=== PATIENT | male | born 1955 | race Caucasian/White ===

== ENCOUNTER → 2016-08-20 | Outpatient (CLI) | payer OTHER ==
--- NOTE | 2016-08-21 15:29 | CR ---
EXAM DATE: 08/20/16 PATIENT'S AGE: 61 Patient: MADHAVI WATTS Facility: [place], [place] Site . Site : 1955 Study: XRay Shoulder Right [id number]/27/2017 9:28:09 AM Ordering Physician: Miranda Samuel Final Report: Indication: Pain. Technique: Three views. Impression: Maintained acromial humeral distance. Anatomic glenohumeral alignment. No degenerative or inflammatory change of significance appreciated at the glenohumeral or acromioclavicular joint. No fracture or bone lesion in the field of view. Dictated by Reed Amin MD @ Aug 20 2016 9:34PM (Electronic Signature) Report Signed by Proxy. DAMIR
== END ==
LOC: MW.CHORTHO 07:48
PROVIDERS: ATTEND Orthopaedic Surgery
DX: S46.919A Strain of unspecified muscle, fascia and tendon at shoulder and upper arm level, unspecified arm, initial encounter (principal)
CPT/HCPCS: 73030-26-RT; 73030-RT

== ENCOUNTER 2017-08-20 09:36 | Day surgery (SDC) | payer OTHER ==
[~2017-08-20 09:36] MED LIST: Acetaminophen/HYDROcodone 325-5 MG Tab PO PRN; Bupivacaine 0.25%/EPINEPHrine 1:200,000 10 ML SDV INJECT ONE; Bupivacaine 25%/EPINEPHrine/PF 30 ML ONE; Lactated Ringers 1,000 ML IV SCH; ceFAZolin 2 GM in Premix Bag 1 BAG IV ONE
[2017-08-20] MEDS ORDERED: Ketorolac 30 MG/ML SDV ONE (11:27)
[2017-08-20] MEDS ORDERED: fentaNYL 100 MCG/2 ML SDV ONE (11:27)
[2017-08-20] MEDS ORDERED: Propofol 200 MG/20 ML SDV ONE (11:27)
[2017-08-20] MEDS ORDERED: Ondansetron 4 MG/2 ML SDV ONE (11:27)
[2017-08-20] MEDS ORDERED: Glycopyrrolate 0.2 MG/ML SDV ONE (11:27)
[2017-08-20] MEDS ORDERED: Lidocaine 2% 5 ML SDV ONE (11:27)
[2017-08-20] MEDS ORDERED: Midazolam 1 MG/ML 2 ML SDV ONE (11:29)
[2017-08-20] MEDS ORDERED: ceFAZolin 1 GM Vial ONE (11:38)
--- NOTE | 2017-08-20 11:46 | PCM.PREANE ---
Preanesthetic Assessment - Anesthesia/Transfusion/Family Hx Anesthesia History: Prior Anesthesia Without Reaction Family History of Anesthesia Reaction: No Transfusion History: No Prior Transfusion(s) - Review of Systems General: No Symptoms Pulmonary: No Symptoms Cardiovascular: No Symptoms Gastrointestinal: No Symptoms Neurological: No Symptoms Other: Reports: None - Physical Assessment NPO Status Date: 08/19/17 O2 Sat by Pulse Oximetry: 96 Respiratory Rate: 16 Vital Signs: Last Vital Signs Temp 36.4 C 08/20/17 11:02 Pulse 61 08/20/17 11:02 Resp 16 08/20/17 11:02 BP 150/82 H 08/20/17 11:02 Pulse Ox 96 08/20/17 11:02 Height: 1.65 m Weight: 130.181 kg ASA Class: 2 Mental Status: Alert & Oriented x3 Airway Class: Mallampati = 2 Dentition: Reports: Normal Dentition ROM/Head Extension: Full Lungs: Clear to Auscultation, Normal Respiratory Effort Cardiovascular: Regular Rate, Regular Rhythm - Allergies Allergies/Adverse Reactions: Allergies Allergy/AdvReac Type Severity Reaction Status Date / Time No Known Allergies Allergy Verified 08/17/17 14:45 - Anesthesia Plan Pre-Op Medication Ordered: None - Acknowledgements Anesthesia Type Planned: General Anesthesia Pt an Appropriate Candidate for the Planned Anesthesia: Yes Alternatives and Risks of Anesthesia Discussed w Pt/Guardian: Yes Pt/Guardian Understands and Agrees with Anesthesia Plan: Yes Additional Comments: PMH: htn, morbid obesity PreAnesthesia Questionnaire HEENT History: Reports: Other (See Below) Other HEENT History: wears glasses, has hearing aids but does not wear them Cardiovascular History: Reports: High Cholesterol, Hypertension Respiratory History: Reports: Sleep Apnea Other Respiratory History: uses CPAP Gastrointestinal History: Reports: None Genitourinary History: Reports: Renal Calculus Musculoskeletal History: Reports: Fracture Other Musculoskeletal History: hx fx finger Endocrine/Metabolic History: Reports: Obesity/BMI 30+ - Past Surgical History Head Surgeries/Procedures: Reports: None GI Surgical History: Reports: Hernia, Abdominal Male Surgical History: Reports: Vasectomy - SUBSTANCE USE Smoking Status *Q: Former Smoker Tobacco Use Within Last Twelve Months: No Recreational Drug Use History: No - HOME MEDS Home Medications: Home Meds Fish Oil/[place]-3 Fatty Acids [Fish Oil 1,000 MG] 1 tab PO DAILY 08/17/17 [ History] Furosemide 20 mg PO DAILY 08/17/17 [History] Multivitamin [Multivitamins] 1 tab PO DAILY 08/17/17 [History] Valsartan 160 mg PO DAILY 08/17/17 [History] - CURRENT (IN HOUSE) MEDS Current Meds: Current Medications Hydrocodone Bitart/Acetaminophen ([place] 325-5 Mg) 1 tab PO Q4H PRN PRN Reason: Pain Lactated Ringer's (Ringers, Lactated) 1,000 mls @ 125 mls/hr IV ASDIRECTED ERIC Last Admin: 08/20/17 11:07 Dose: 125 mls/hr Discontinued Medications Bupivacaine HCl/Epinephrine Bitart (Marcaine 0.25%/Epinephrine 1:200,000) 10 ml INJECT ONETIME ONE Stop: 08/20/17 08:01 Fentanyl (Sublimaze) Confirm Administered Dose 100 mcg .ROUTE .STK-MED ONE Stop: 08/20/17 11:28 Glycopyrrolate (Robinul) Confirm Administered Dose 0.2 mg .ROUTE .STK-MED ONE Stop: 08/20/17 11:28 Cefazolin Sodium/Dextrose 2 gm (/ Premix) 50 mls @ 100 mls/hr IV ONETIME ONE Stop: 08/20/17 08:29 Bupivacaine HCl/Epinephrine Bitart (Sensorc Mpf 0.25%-Epi 1:631099) Confirm Administered Dose 30 mls @ as directed .ROUTE .STK-MED ONE Stop: 08/20/17 07:41 Ketorolac Tromethamine (Toradol) Confirm Administered Dose 30 mg .ROUTE .STK- MED ONE Stop: 08/20/17 11:28 Lidocaine (Xylocaine-Mpf 2%) Confirm Administered Dose 5 ml .ROUTE .STK-MED ONE Stop: 08/20/17 11:28 Midazolam HCl (Versed 1 Mg/Ml) Confirm Administered Dose 2 mg .ROUTE .STK-MED ONE Stop: 08/20/17 11:30 Ondansetron HCl (Zofran) Confirm Administered Dose 4 mg .ROUTE .STK-MED ONE Stop: 08/20/17 11:28 Propofol (Diprivan 20 Ml) Confirm Administered Dose 200 mg .ROUTE .STK-MED ONE Stop: 08/20/17 11:28
--- NOTE | 2017-08-20 12:40 | PCM.OPNOTE ---
- General Post-Op/Procedure Note Date of Surgery/Procedure: 08/20/17 Operative Procedure(s): excision of rhinophyma Pre Op Diagnosis: rhinophyma Post-Op Diagnosis: Same Anesthesia Technique: General LMA, Local Primary Surgeon: Emely Erickson Complications: None Condition: Good
[2017-08-20] MEDS ORDERED: Phenylephrine/Normal Saline 100 MCG/ML 10 ML Syringe ONE (13:01)
[2017-08-20] MEDS ORDERED: Ondansetron 4 MG/2 ML SDV IVPUSH PRN (13:59)
--- NOTE | 2017-08-20 14:26 | PCM.POSTAN ---
POST ANESTHESIA ASSESSMENT - MENTAL STATUS Mental Status: Alert, Oriented - RESPIRATORY Respiratory Status: Respiratory Rate WNL, Airway Patent, O2 Saturation Stable - CARDIOVASCULAR CV Status: Pulse Rate WNL, Blood Pressure Stable - GASTROINTESTINAL GI Status: No Symptoms - POST OP HYDRATION Hydration Status: Adequate & Stable
--- NOTE | 2017-08-20 14:27 | PCM48HPAN ---
Post Anesthesia Note - EVALUATION WITHIN 48HRS OF ANESTHETIC Vital Signs in Normal Range: Yes Patient Participated in Evaluation: Yes Respiratory Function Stable: Yes Airway Patent: Yes Cardiovascular Function Stable: Yes Hydration Status Stable: Yes Pain Control Satisfactory: Yes Nausea and Vomiting Control Satisfactory: Yes Mental Status Recovered: Yes Resp Rate: 13
--- NOTE | 2017-08-25 00:56 | OR ---
SURGEON: EMELY ERICKSON MD DATE OF PROCEDURE: 08/20/2017 PREOPERATIVE DIAGNOSIS: Significant rhinophyma causing nasal obstruction. POSTOPERATIVE DIAGNOSIS: Significant rhinophyma causing nasal obstruction. PROCEDURE PERFORMED: Tangential excision of rhinophyma and cautery for hemostasis. PRIMARY SURGEON: Emely Erickson MD ANESTHESIA: General LMA with local. INDICATIONS: Mr. Handley is a 62-year-old gentleman with significant rhinophyma. Risks and benefits of excision and cautery were discussed with him, and he is in agreement to proceed. He knows that this will heal by secondary intention and will take sometime for final outcome. Risks were including, but not limited to, bleeding, infection, damage to underlying or overlying structures, possible need for future interventions, and possible scarring. PROCEDURE IN DETAIL: After informed consent was obtained and placed on the chart, the patient was brought to the operating theater and laid in supine position. After adequate general anesthesia was obtained, the area was prepped and draped, and a time-out was completed to confirm side and site. Attention was then paid to tangential excision of the rhinophyma using a #15 blade and a #10 blade. Once this was completed, meticulous hemostasis was obtained in a segmental fashion for the entire nasal dorsum and ala. The excision was then tapered to allow a smooth transition between normal skin and the previous rhinophyma excision. Once appropriate contour was appreciated, the area was dressed with bacitracin and a nonstick dressing. The patient tolerated this well. All counts and needles were correct at the end of the case. FOLLOWUP INSTRUCTIONS: The patient was discharged home in stable condition and will follow up with us in approximately 1 week or sooner if any problems, questions, or concerns. HEGGTHE / STEPHANIEL /[id number]
== END 2017-08-20 15:15 | disposition home or self-care (01) ==
LOC: MW.SDS 09:36
PROVIDERS: ATTEND Plastic Surgery
DX: L71.1 Rhinophyma (principal); I10 Essential (primary) hypertension; E78.5 Hyperlipidemia, unspecified; Z79.899 Other long term (current) drug therapy
CPT/HCPCS: 00160; J0690; J1885; J2250; J2405; J2704; J3010; J7120

== ENCOUNTER 2017-12-19 10:07 | Emergency (ER) | payer OTHER ==
--- NOTE | 2017-12-19 10:34 | EDM.PDOC ---
ED HPI GENERAL MEDICAL PROBLEM - General Chief Complaint: Abdominal Pain Stated Complaint: ABDOMINAL PAIN Time Seen by Provider: 12/19/17 10:31 Source of Information: Reports: Patient History Limitations: Reports: No Limitations - History of Present Illness INITIAL COMMENTS - FREE TEXT/NARRATIVE: HISTORY AND PHYSICAL: History of present illness: Patient is a 62-year-old male here with complaint of kidney stones. He states that about 8:00 this morning he felt the pain on the left side of his back, the pain has since subsided. He reports he has a history of kidney stones and this is what generally starts. He denies any hematuria or dysuria. He states he felt a little nauseous this morning with the pain but denies any vomiting or diarrhea. He denies any fevers or chills. He states he is not having any abdominal pain. Patient states he is not in any pain at this time. Patient has a follow up with his primary care provider tomorrow. Review of systems: As per history of present illness and below otherwise all systems reviewed and negative. Past medical history: As per history of present illness and as reviewed below otherwise noncontributory. Surgical history: As per history of present illness and as reviewed below otherwise noncontributory. Social history: No reported history of drug or alcohol abuse. Family history: As per history of present illness and as reviewed below otherwise noncontributory. Physical exam: General: Patient sitting comfortably in no acute distress and nontoxic appearing HEENT: Atraumatic, normocephalic, pupils reactive, negative for conjunctival pallor or scleral icterus, mucous membranes moist, throat clear, neck supple, nontender, trachea midline. No meningeal signs. Lungs: Clear to auscultation, breath sounds equal bilaterally, chest nontender. Heart: S1S2, regular, negative for clicks, rubs, or overt murmur. Abdomen: Obese, Soft, nondistended, nontender. Negative for masses or hepatosplenomegaly. Negative for costovertebral tenderness. Pelvis: Stable nontender. Genitourinary: Deferred. Rectal: Deferred. Extremities: Atraumatic, negative for cords or calf pain. Neurovascular unremarkable. Neuro: Awake, alert, oriented. Cranial nerves II through XII unremarkable. Cerebellum unremarkable. Motor and sensory unremarkable throughout. Exam nonfocal. Notes: Patient declines need for pain medication. Diagnostics: UA, CBC, CMP CT Abdomen/pelvis Therapeutics: None Prescriptions: None Impression: Nephrolithiasis Plan: 1. Follow up with urology 2. Return to ED as needed as discussed Definitive disposition and diagnosis as appropriate pending reevaluation and review of above. left flank Pain Score (Numeric/FACES): 2 - Related Data Allergies Allergy/AdvReac Type Severity Reaction Status Date / Time No Known Allergies Allergy Verified 12/19/17 10:24 Home Meds: Home Meds Fish Oil/[place]-3 Fatty Acids [Fish Oil 1,000 MG] 1 tab PO DAILY 08/17/17 [ History] Furosemide 20 mg PO DAILY 08/17/17 [History] Multivitamin [Multivitamins] 1 tab PO DAILY 08/17/17 [History] Valsartan 160 mg PO DAILY 08/17/17 [History] Past Medical History HEENT History: Reports: Other (See Below) Other HEENT History: wears glasses, has hearing aids but does not wear them Cardiovascular History: Reports: High Cholesterol, Hypertension Respiratory History: Reports: Sleep Apnea Other Respiratory History: uses CPAP Gastrointestinal History: Reports: None Genitourinary History: Reports: Renal Calculus Musculoskeletal History: Reports: Fracture Other Musculoskeletal History: hx fx finger Psychiatric History: Reports: None Endocrine/Metabolic History: Reports: Obesity/BMI 30+ - Past Surgical History Head Surgeries/Procedures: Reports: None GI Surgical History: Reports: Hernia, Abdominal Male Surgical History: Reports: Vasectomy Social & Family History - Family History Family Medical History: Noncontributory - Tobacco Use Smoking Status *Q: Never Smoker - Recreational Drug Use Recreational Drug Use: No ED ROS GENERAL - Review of Systems Review Of Systems: ROS reveals no pertinent complaints other than HPI. ED EXAM, GI/ABD - Physical Exam Exam: See Below (See dictation) Course - Vital Signs Last Recorded V/S: Last Vital Signs Temp 36.6 C 12/19/17 13:29 Pulse 55 L 12/19/17 13:29 Resp 18 12/19/17 13:29 BP 154/84 H 12/19/17 13:29 Pulse Ox 96 12/19/17 13:29 - Orders/Labs/Meds Orders: Active Orders 24 hr Category Date Time Status Abdomen Pelvis wo Cont [CT] Stat Exams 12/19/17 11:26 Taken UA W/MICROSCOPIC [URIN] Stat Lab 12/19/17 10:50 Ordered Labs: Laboratory Tests 12/19/17 12/19/17 12/19/17 Range/Units 10:50 13:23 13:23 WBC 8.79 (4.0-11.0) K/uL RBC 5.31 (4.50-5.90) M/uL Hgb 14.7 (13.0-17.0) g/dL Hct 43.6 (38.0-50.0) % MCV 82.1 (80.0-98.0) fL MCH 27.7 (27.0-32.0) pg MCHC 33.7 (31.0-37.0) g/dL RDW Std Deviation 40.2 (28.0-62.0) fl RDW Coeff of Jose Enrique 13 (11.0-15.0) % Plt Count 174 (150-400) K/uL MPV 9.40 (7.40-12.00) fL Neut % (Auto) 80.1 H (48.0-80.0) % Lymph % (Auto) 12.1 L (16.0-40.0) % Moody % (Auto) 6.9 (0.0-15.0) % Eos % (Auto) 0.7 (0.0-7.0) % Baso % (Auto) 0.2 (0.0-1.5) % Neut # (Auto) 7.0 H (1.4-5.7) K/uL Lymph # (Auto) 1.1 (0.6-2.4) K/uL Moody # (Auto) 0.6 (0.0-0.8) K/uL Eos # (Auto) 0.1 (0.0-0.7) K/uL Baso # (Auto) 0.0 (0.0-0.1) K/uL Nucleated RBC % 0.0 /100WBC Nucleated RBCs # 0 K/uL Sodium 142 (136-148) mmol/L Potassium 4.2 (3.5-5.1) mmol/L Chloride 107 (98-107) mmol/L Carbon Dioxide 29.7 (21.0-32.0) mmol/L BUN 12 (7.0-18.0) mg/dL Creatinine 1.0 (0.8-1.3) mg/dL Est Cr Clr Drug Dosing 65.77 mL/min Estimated GFR (MDRD) > 60.0 ml/min Glucose 117 H (74-106) mg/dL Calcium 8.3 L (8.5-10.1) mg/dL Total Bilirubin 0.3 (0.2-1.0) mg/dL AST 19 (15-37) IU/L ALT 48 (14-63) IU/L Alkaline Phosphatase 59 (46-116) U/L Total Protein 6.8 (6.4-8.2) g/dL Albumin 3.6 (3.4-5.0) g/dL Globulin 3.2 (2.0-3.5) g/dL Albumin/Globulin Ratio 1.1 L (1.3-2.8) Urine Color YELLOW Urine Appearance CLEAR Urine pH 6.0 (5.0-8.0) Ur Specific [place] 1.015 (1.001-1.035) Urine Protein NEGATIVE (NEGATIVE) mg/dL Urine Glucose (UA) NEGATIVE (NEGATIVE) mg/dL Urine Ketones NEGATIVE (NEGATIVE) mg/dL Urine Occult Blood LARGE H (NEGATIVE) Urine Nitrite NEGATIVE (NEGATIVE) Urine Bilirubin NEGATIVE (NEGATIVE) Urine Urobilinogen 0.2 (<2.0) EU/dL Ur Leukocyte Esterase NEGATIVE (NEGATIVE) Urine RBC 20-25 (0-2/HPF) Urine WBC 0-1 (0-5/HPF) Ur Epithelial Cells RARE (NONE-FEW) Urine Bacteria RARE (NEGATIVE) Departure - Departure Time of Disposition: 14:16 Disposition: Home, Self-Care 01 Condition: Good Clinical Impression: Nephrolithiasis - Discharge Information Referrals: Salvador Bryant MD [Primary Care Provider] - Forms: ED Department Discharge Additional Instructions: The following information is given to patients seen in the emergency department who are being discharged to home. This information is to outline your options for follow-up care. We provide all patients seen in our emergency department with a follow-up referral. The need for follow-up, as well as the timing and circumstances, are variable depending upon the specifics of your emergency department visit. If you don't have a primary care physician on staff, we will provide you with a referral. We always advise you to contact your personal physician following an emergency department visit to inform them of the circumstance of the visit and for follow-up with them and/or the need for any referrals to a consulting specialist. The emergency department will also refer you to a specialist when appropriate. This referral assures that you have the opportunity for follow-up care with a specialist. All of these measure are taken in an effort to provide you with optimal care, which includes your follow-up. Under all circumstances we always encourage you to contact your private physician who remains a resource for coordinating your care. When calling for follow-up care, please make the office aware that this follow-up is from your recent emergency room visit. If for any reason you are refused follow-up, please contact the [facility] Emergency Department at and asked to speak to the emergency department charge nurse. [facility] Specialty Care - Urology [address] [place] [id number] 1. Follow up with urology 2. Return to ED as needed as discussed - My Orders Last 24 Hours: My Active Orders 12/19/17 10:50 UA W/MICROSCOPIC [URIN] Stat 12/19/17 11:26 Abdomen Pelvis wo Cont [CT] Stat - Assessment/Plan Last 24 Hours: My Active Orders 12/19/17 10:50 UA W/MICROSCOPIC [URIN] Stat 12/19/17 11:26 Abdomen Pelvis wo Cont [CT] Stat
[2017-12-19 14:12] LABS: CHLORIDE,CL 107 mmol/L (98-107); SODIUM,NA 142 mmol/L (136-148)
--- NOTE | 2017-12-20 14:46 | CT ---
EXAM DATE: 12/19/17 PATIENT'S AGE: 62 Patient: MADHAVI WATTS Facility: [place], [place] Site . Site : 1955 Study: CT Abdomen/Pelvis w/o cont. [id number]/26/2018 12:27:52 PM Ordering Physician: Doctor Bermeo Final Report: INDICATION: Left flank pain. History of nephrolithiasis. TECHNIQUE: CT abdomen and pelvis without contrast. COMPARISON: None FINDINGS: Lower chest: Unremarkable. Liver: Minimal low-attenuation steatosis. Some sparing around the gallbladder fossa. Spleen: Unremarkable. Pancreas: Unremarkable. Gallbladder and bile ducts: Unremarkable. Kidneys: Mild hydronephrosis and hydroureter on the left extends to a mid ureteral calculus measuring 2.7 mm just above the level of the sacral promontory. Distal ureter decompressed. Mild periureteral stranding around the level of the stone. Mild perinephric stranding on the left. Roughly 5.4 x 3.7 cm parapelvic cyst mid to lower pole left kidney. No other nephrolithiasis. Slightly expanded hypoattenuating left kidney versus the right. No stones on the right. Tiny benign a 1 cm exophytic cyst ventral lower pole. Adrenal glands: Small roughly 2 cm low attenuation nodule right adrenal with Hounsfield units averaging less than 10 commensurate with adenoma. GI tract: Normal caliber small bowel. Diverticula of the left colon without inflammation. Appendix is normal. Vascular structures: Mild atherosclerotic calcification. No aneurysmal dilatation. Retroaortic left renal vein noted. Lymph nodes: Unremarkable. Miscellaneous: Unremarkable. No free air or significant free fluid. Pelvic Organs: Unremarkable. Urinary bladder decompressed. No filling defect. Bones: Unremarkable for age. IMPRESSION: Nearly 3 mm partially obstructing mid left ureteral calculus. Just above the sacral promontory level. Mild obstructive uropathy. Parapelvic cyst mid to lower pole. Tiny benign exophytic. Low-grade hepatic steatosis. Left colon diverticulosis. Roughly 2 cm benign right adrenal adenoma. Please note that all CT scans at this facility use dose modulation, iterative reconstruction, and/or weight-based dosing when appropriate to reduce radiation dose to as low as reasonably achievable. Dictated by Reed Amin MD @ Dec 19 2017 1:05PM (Electronic Signature) Report Signed by Proxy. DAMIR
== END 2017-12-19 14:24 | disposition home or self-care (01) ==
LOC: MW.ED 10:07
DX: N13.9 Obstructive and reflux uropathy, unspecified (principal); N20.2 Calculus of kidney with calculus of ureter; I10 Essential (primary) hypertension; E66.9 Obesity, unspecified
CPT/HCPCS: 36415; 74176; 74176-26; 80053; 81001; 85025; 99282-25

== ENCOUNTER 2018-09-26 07:46 | Day surgery (SDC) | payer OTHER ==
[~2018-09-26 07:46] MED LIST changes: -Acetaminophen/HYDROcodone 325-5 MG Tab PO PRN; -Bupivacaine 0.25%/EPINEPHrine 1:200,000 10 ML SDV INJECT ONE; -Bupivacaine 25%/EPINEPHrine/PF 30 ML ONE; +Midazolam 1 MG/ML 2 ML SDV ONE; +Propofol 200 MG/20 ML SDV ONE; -ceFAZolin 2 GM in Premix Bag 1 BAG IV ONE; +fentaNYL 100 MCG/2 ML SDV ONE
--- NOTE | 2018-09-26 08:59 | PCM.PREANE ---
Preanesthetic Assessment - Anesthesia/Transfusion/Family Hx Anesthesia History: Prior Anesthesia Without Reaction Family History of Anesthesia Reaction: No Transfusion History: No Prior Transfusion(s) Intubation History: Unknown - Review of Systems General: No Symptoms Pulmonary: No Symptoms Cardiovascular: No Symptoms Gastrointestinal: No Symptoms Neurological: No Symptoms Other: Reports: None - Physical Assessment Height: 5 ft 6 in Weight: 123.377 kg ASA Class: 3 Mental Status: Alert & Oriented x3 Airway Class: Mallampati = 2 Dentition: Reports: Normal Dentition, Missing Tooth/Teeth (multiple missing) Thyro-Mental Finger Breadths: 3 Mouth Opening Finger Breadths: 2 ROM/Head Extension: Limited/Partial Lungs: Clear to Auscultation, Normal Respiratory Effort Cardiovascular: Regular Rate, Regular Rhythm - Allergies Allergies/Adverse Reactions: Allergies Allergy/AdvReac Type Severity Reaction Status Date / Time No Known Allergies Allergy Verified 09/22/18 07:41 - Blood Blood Available: No - Anesthesia Plan Pre-Op Medication Ordered: None - Acknowledgements Anesthesia Type Planned: MAC Pt an Appropriate Candidate for the Planned Anesthesia: Yes Alternatives and Risks of Anesthesia Discussed w Pt/Guardian: Yes Pt/Guardian Understands and Agrees with Anesthesia Plan: Yes PreAnesthesia Questionnaire HEENT History: Reports: Other (See Below) Other HEENT History: wears glasses, has hearing aids but does not wear them Cardiovascular History: Reports: High Cholesterol, Hypertension Respiratory History: Reports: Sleep Apnea Other Respiratory History: uses CPAP Gastrointestinal History: Reports: None Genitourinary History: Reports: Renal Calculus Musculoskeletal History: Reports: Fracture Other Musculoskeletal History: hx fx finger Neurological History: Reports: None Psychiatric History: Reports: None Endocrine/Metabolic History: Reports: Obesity/BMI 30+ (BMI 43.9) Hematologic History: Reports: None Immunologic History: Reports: None Oncologic (Cancer) History: Reports: None Dermatologic History: Reports: None - Past Surgical History Head Surgeries/Procedures: Reports: None HEENT Surgical History: Reports: None Cardiovascular Surgical History: Reports: None Respiratory Surgical History: Reports: None GI Surgical History: Reports: Hernia, Abdominal Male Surgical History: Reports: Vasectomy Endocrine Surgical History: Reports: None Neurological Surgical History: Reports: None Musculoskeletal Surgical History: Reports: None Oncologic Surgical History: Reports: None Dermatological Surgical History: Reports: None - SUBSTANCE USE Smoking Status *Q: Former Smoker Recreational Drug Use History: No - HOME MEDS Home Medications: Home Meds Fish Oil/[place]-3 Fatty Acids [Fish Oil 1,000 MG] 1 tab PO DAILY 08/17/17 [ History] Furosemide 20 mg PO DAILY PRN 08/17/17 [History] Krill/[place]-3/Dha/Epa/Lipids [[place] Oil 300 mg Softgel] 1 tab PO DAILY 09/22/18 [History] Losartan Potassium 100 mg PO DAILY 09/22/18 [History] Multivitamin [Multivitamins] 1 tab PO DAILY 09/22/18 [History] - CURRENT (IN HOUSE) MEDS Current Meds: Current Medications Lactated Ringer's (Ringers, Lactated) 1,000 mls @ 125 mls/hr IV ASDIRECTED ERIC Discontinued Medications Fentanyl (Sublimaze) Confirm Administered Dose 100 mcg .ROUTE .STK-MED ONE Stop: 09/26/18 07:21 Midazolam HCl (Versed 1 Mg/Ml) Confirm Administered Dose 2 mg .ROUTE .STK-MED ONE Stop: 09/26/18 07:21 Propofol (Diprivan 20 Ml) Confirm Administered Dose 400 mg .ROUTE .STK-MED ONE Stop: 09/26/18 07:21
[2018-09-26] MEDS ORDERED: Ketamine 500 mg/10 ML MDV ONE (10:01)
--- NOTE | 2018-09-26 10:52 | PCM.OPNOTE ---
- General Post-Op/Procedure Note Date of Surgery/Procedure: 09/26/18 Operative Procedure(s): Colonoscopy Pre Op Diagnosis: Desire for colorectal cancer screening Post-Op Diagnosis: Mild diverticulosis Anesthesia Technique: MAC (ASA III) Primary Surgeon: Brody Fowler Condition: Good Free Text/Narrative:: DICTATION [id number] CPT CODE 84610
[2018-09-26] MEDS ORDERED: Lactated Ringers 1,000 ML IV SCH (11:00)
--- NOTE | 2018-09-26 16:00 | OR ---
SURGEON: Brody Fowler M.D. DATE OF PROCEDURE: 09/26/2018 OPERATION PERFORMED: Colonoscopy. PRIMARY SURGEON: Brody Fowler M.D. ANESTHESIA: MAC. ASA CLASSIFICATION: III. PREOPERATIVE DIAGNOSIS: Desire for colorectal cancer screening. POSTOPERATIVE DIAGNOSIS: Mild sigmoid diverticulosis. DESCRIPTION OF PROCEDURE: The patient was taken to the endoscopy room and positioned on the endoscopy table in the left lateral decubitus position. Time-out was called for appropriate identification of the patient and procedure. Monitored anesthesia care was provided. The colonoscope was inserted into the rectum and advanced with minimal difficulty to the cecum. The cecum was identified by internal landmarks and external pressure. The colonoscope was retroflexed to visualize the ascending colon from below. The colonoscope was then straightened and slowly withdrawn. The cecum, ascending colon, hepatic flexure, transverse colon, splenic flexure, descending colon, sigmoid colon, and rectum were very well visualized. No tumors or polyps were identified. A few small scattered diverticula were noted throughout the descending and sigmoid colon. The colonoscope was withdrawn to the rectum and retroflexed to visualize the anal orifice from above. No tumors, polyps, or acute hemorrhoidal changes were noted. The colonoscope was then straightened, the rectum aspirated, and the colonoscope removed. The patient tolerated the procedure well and was taken to recovery room in stable condition. JUVENAL CRAVEN /[id number]
== END 2018-09-26 11:30 | disposition home or self-care (01) ==
LOC: MW.SDS 07:46
PROVIDERS: ATTEND Surgery
DX: Z12.11 Encounter for screening for malignant neoplasm of colon (principal); K57.30 Diverticulosis of large intestine without perforation or abscess without bleeding; I10 Essential (primary) hypertension; E78.00 Pure hypercholesterolemia, unspecified; G47.30 Sleep apnea, unspecified; M19.012 Primary osteoarthritis, left shoulder; M19.011 Primary osteoarthritis, right shoulder; N20.0 Calculus of kidney; E66.01 Morbid (severe) obesity due to excess calories; Z68.41 Body mass index [BMI] 40.0-44.9, adult; Z99.89 Dependence on other enabling machines and devices; Z87.891 Personal history of nicotine dependence; Z79.899 Other long term (current) drug therapy
CPT/HCPCS: 45378; J2001; J2250; J2704; J7120; J3010

== ENCOUNTER 2021-08-30 11:15 | Emergency (ER) | payer MEDICARE, OTHER ==
[2021-08-30] MEDS ORDERED: Sodium Chloride 0.9% 10 ML Syringe FLUSH PRN (11:31)
[2021-08-30] MEDS ORDERED: Sodium Chloride 0.9% 2.5 ML Syringe FLUSH PRN (11:31)
[2021-08-30] MEDS ORDERED: Dexamethasone 4 MG/ML SDV IVPUSH ONE (11:32)
[2021-08-30 12:36] LABS: BLOOD UREA NITROGEN,BUN 16 mg/dL (7.0-18.0); CARBON DIOXIDE,CO2 25.9 mmol/L (21.0-32.0); CHLORIDE,CL 105 mmol/L (98-107); GLUCOSE RANDOM 108 mg/dL (74-106); LIPASE 208 U/L (73-393); POTASSIUM,K 4.2 mmol/L (3.5-5.1); SODIUM,NA 140 mmol/L (136-148)
== END 2021-08-30 13:21 | disposition home or self-care (01) ==
LOC: MW.ED 11:15
DX: L29.9 Pruritus, unspecified (principal); T43.225A Adverse effect of selective serotonin reuptake inhibitors, initial encounter; E78.00 Pure hypercholesterolemia, unspecified; I10 Essential (primary) hypertension; E66.9 Obesity, unspecified; Z79.899 Other long term (current) drug therapy; Z68.42 Body mass index [BMI] 45.0-49.9, adult
CPT/HCPCS: 36415; 71045; 80053; 83690; 84484; 85025; 93005; 96374; 99285; J1100; J3490

== ENCOUNTER 2024-02-21 02:23 | Emergency (ER) | payer MEDICARE, OTHER ==
[2024-02-21] MEDS ORDERED: Sodium Chloride 0.9% 10 ML Syringe FLUSH PRN (02:25)
[2024-02-21] MEDS ORDERED: Furosemide 40 MG/4 ML VIAL IVPUSH ONE (02:30)
[2024-02-21] MEDS: Ondansetron 4 MG/2 ML SDV IVPUSH ONE (03:29)
[2024-02-21 03:32] LABS: BASE EXCESS VENOUS 0.2 (-2.0-3.0); BASOPHILS ABSOLUTE AUTO 0.03 K/uL (0.00-0.20); BASOPHILS PERCENT AUTO 0.4 % (0.0-1.0); BICARBONATE,VENOUS 26 mEQ/mL (22-28); EOSINOPHILS ABSOLUTE AUTO 0.04 K/uL (0.00-0.45); EOSINOPHILS PERCENT AUTO 0.5 % (0.0-6.0); HEMATOCRIT 39.4 % (42.0-52.0); HEMOGLOBIN 13.5 g/dL (14.0-18.0); IMMATURE GRAN ABSOLUTE AUTO 0.07 K/uL (0.00-0.05); IMMATURE GRAN PERCENT AUTO 0.8 % (0.0-0.4); MEAN CORPUSCULAR HEMOGLOBIN 28.4 pg (28.0-32.0); MEAN CORPUSCULAR HGB CONC 34.3 g/dL (32.0-36.0); MEAN CORPUSCULAR VOLUME 82.8 fL (83.0-99.0); MEAN PLATELET VOLUME 10.7 fL (9.4-12.4); MONOCYTES ABSOLUTE AUTO 0.55 K/uL (0.00-0.80); MONOCYTES PERCENT AUTO 6.5 % (0.0-8.0); NEUTROPHILS ABSOLUTE AUTO 6.64 K/uL (1.80-7.70); NEUTROPHILS PERCENT AUTO 78.8 % (41.0-71.0); PCO2 VENOUS 45 mmHG (41-51); PH,VENOUS 7.37 (7.31-7.41); PLATELET COUNT,PLT 133 K/uL (150-400); RED BLOOD CELL COUNT 4.76 M/uL (4.52-5.90); WHITE BLOOD CELL COUNT,WBC 8.43 K/uL (3.9-11.3)
[2024-02-21 03:34] LABS: PO2 VENOUS < 30 mmHG (35-45)
[2024-02-21 03:55] LABS: HEMOGLOBIN A1C 12.5 %
[2024-02-21 04:00] LABS: BILIRUBIN,URINE NEGATIVE (NEGATIVE); COLOR,URINE YELLOW; GLUCOSE,URINE >=1000 mg/dL (NEGATIVE); KETONES,URINE 40 mg/dL (NEGATIVE); LEUKOCYTE ESTERASE,URINE NEGATIVE (NEGATIVE); NITRITE,URINE NEGATIVE (NEGATIVE); OCCULT BLOOD,URINE TRACE-INTACT (NEGATIVE); PROTEIN,URINE 30 mg/dL (NEGATIVE); UROBILINOGEN,URINE 0.2 EU/dL (<2.0)
[2024-02-21 04:04] LABS: APPEARANCE,URINE HAZY
[2024-02-21 04:08] LABS: BACTERIA,URINE FEW (NEGATIVE); EPITHELIAL CELLS,URINE RARE (NONE-FEW); RBC,URINE 0-3 (0-2/HPF); WBC,URINE 0-2 (0-5/HPF)
[2024-02-21 04:11] LABS: AMPHETAMINES SCREEN, URINE NEGATIVE (CUTOFF=500); BARBITURATE SCREEN,URINE NEGATIVE (CUTOFF=200); BENZODIAZEPINES SCREEN,URINE NEGATIVE (CUTOFF=150); BUPRENORPHINE SCREEN,URINE NEGATIVE (CUTOFF=10); METHADONE SCREEN, URINE NEGATIVE (CUTOFF=200); METHAMPHETAMINES SCREEN, URINE NEGATIVE (CUTOFF=500); OXYCODONE SCREEN,URINE NEGATIVE (CUT0FF=100); PCP SCREEN,URINE NEGATIVE (CUTOFF=25); THC SCREEN,URINE 20 NG/ML NEGATIVE (CUTOFF=50)
[2024-02-21 04:15] LABS: A/G RATIO 0.9 (0.9-1.6); ACETAMINOPHEN <2.0 ug/mL; ALANINE AMINOTRANSFERASE,ALT 68 IU/L (14-63); ALBUMIN 3.1 g/dL (3.4-5.0); ALKALINE PHOSPHATASE 73 U/L (46-116); ASPARTATE AMNIOTRANSFERASE,AST 36 IU/L (15-37); BILIRUBIN TOTAL 0.5 mg/dL (0.2-1.0); BLOOD UREA NITROGEN,BUN 14 mg/dL (7.0-18.0); CARBON DIOXIDE,CO2 25.8 mmol/L (21.0-32.0); CHLORIDE,CL 101 mmol/L (98-107); CREATININE 1.1 mg/dL (0.8-1.3); EST CRCL DRUG DOSING (CG) 54.36 mL/min; GLUCOSE RANDOM 381 mg/dL (74-106); LIPASE 81 U/L (16-77); MAGNESIUM 1.7 mg/dL (1.8-2.4); POTASSIUM,K 4.2 mmol/L (3.5-5.1); PRO B-TYPE NATRIUR PEPT,BNPPRO 189 pg/mL (0-125); PROTEIN TOTAL,TP 6.5 g/dL (6.4-8.2); SALICYLATE 1.5 mg/dL (0.0-20.0); SODIUM,NA 136 mmol/L (136-148)
[2024-02-21 04:18] LABS: ESTIMATED GFR 72 mL/min (>60); ETHANOL BLOOD MEDICAL < 3.0 mg/dL
[2024-02-21] MEDS ORDERED: Glucagon,Human Recombinant 1 MG Vial IM PRN (04:18)
[2024-02-21] MEDS ORDERED: 50% Dextrose in Water 50 ML Syringe IVPUSH PRN (04:18)
[2024-02-21] MEDS: Insulin Regular, Human 100 Units/ML 10 ML Vial IVPUSH ONE (04:41)
[2024-02-21] MEDS: Sodium Chloride 0.9% 500 ML IV ONE (04:46)
[2024-02-21] MEDS ORDERED: LORazepam 2 MG/ML SDV IVPUSH PRN (05:54)
[2024-02-21] MEDS: LORazepam 2 MG/ML SDV IVPUSH ONE (05:55)
[2024-02-21] MEDS: LORazepam 2 MG/ML SDV ONE (05:55)
== END 2024-02-21 11:14 ==
LOC: MW.ED 02:23
DX: R56.9 Unspecified convulsions (principal); E11.65 Type 2 diabetes mellitus with hyperglycemia; E86.0 Dehydration; R82.4 Acetonuria; R41.82 Altered mental status, unspecified; I10 Essential (primary) hypertension; E66.9 Obesity, unspecified; Z90.89 Acquired absence of other organs; Z68.42 Body mass index [BMI] 45.0-49.9, adult; Z88.6 Allergy status to analgesic agent; Z79.4 Long term (current) use of insulin; Z79.84 Long term (current) use of oral hypoglycemic drugs; Z79.899 Other long term (current) drug therapy
CPT/HCPCS: 36415; 70450; 71045; 80053; 80143; 80179; 80305; 80307; 81001; 82803; 82947; 83036; 83605; 83690; 83735; 83880; 85025; 93005; 96361; 96374; 96375; 99285; J1953; J2060; J2405; J7030; J7060; 93010; J1815-GY